=== PATIENT | female | born 1955 | race Caucasian/White ===

== ENCOUNTER 2016-05-10 10:20 | Inpatient (IN) | payer BC ==
[2016-05-10] MEDS ORDERED: ADENOSINE 3 MG/ML SOL IV ONE (10:38)
[2016-05-10] MEDS ORDERED: DILTIAZEM 5 MG/ML SOL IV ONE ×3 (10:38→13:35)
[2016-05-10 10:48] LABS: HEMATOCRIT 42 % (35-47); MEAN CORPUSCULAR HGB CONC 32.8 gm/dl (32.0-36.0); MEAN CORPUSCULAR VOLUME 82 fL (81-99)
[2016-05-10] MEDS ORDERED: SODIUM CHLORIDE 0.9% 1000ML 1,000 ML IV ONE (10:53)
[2016-05-10 11:02] LABS: ALBUMIN 3.5 gm/dl (3.4-5.0); CALCIUM 10.2 mg/dl (8.5-10.1); POTASSIUM 5.6 mMol/L (3.5-5.1)
[2016-05-10 11:03] LABS: BASOPHILS % (MANUAL) 0 % (0-3); EOSINOPHILS % (MANUAL) 0 % (0-9); LYMPHOCYTES % (MANUAL) 2 % (10-50); NORMAL RBCS NORMAL RBCS
[2016-05-10 11:11] LABS: APPEARANCE,URINE Clear; BILIRUBIN,URINE NEGATIVE (NEGATIVE); COLOR,URINE Yellow; GLUCOSE, URINE (UA) 3+ (NEGATIVE); KETONES,URINE 1+ (NEGATIVE); LEUKOCYTE ESTERASE ,URINE NEGATIVE (NEGATIVE); NITRATE,URINE NEGATIVE (NEGATIVE); OCCULT BLOOD,URINE TRACE LYSED (NEG-TRACE); UROBILINOGEN,URINE 0.2 (0.2-1.0 EU)
[2016-05-10] MEDS ORDERED: INSULIN HUMAN REGULAR 100 U/ML SOL ONE ×2 (11:24→12:03)
[2016-05-10] MEDS ORDERED: INSULIN HUMAN REGULAR 500 U in SODIUM CHLORIDE 0.9% 500 ML 500 ML IV SCH (11:30)
[2016-05-10 11:32] LABS: ABG PH 7.38 (7.35-7.45)
[2016-05-10 11:40] LABS: RBC,URINE 0-1 (0-3AV/HPF)
[2016-05-10] MEDS ORDERED: INSULIN HUMAN REGULAR 100 U/ML SOL IV ONE (11:54)
[2016-05-10] MEDS ORDERED: SODIUM CHLORIDE 0.9% 1000ML 1,000 ML IV SCH (13:30)
[2016-05-10 13:59] LABS: CALCIUM 8.4 mg/dl (8.5-10.1); POTASSIUM 3.6 mMol/L (3.5-5.1)
[2016-05-10] MEDS ORDERED: PATIENT EDUCATION 1 MISC PRN (14:10)
[2016-05-10] MEDS ORDERED: SODIUM CHLORIDE 0.45% 1000 ML 1,000 ML with POTASSIUM CHLORIDE 2 MEQ/ML 20 MEQ IV ONE (14:16)
[2016-05-10 15:34] LABS: POTASSIUM 4.2 mMol/L (3.5-5.1)
[2016-05-10] MEDS: LEVETIRACETAM 250 MG TAB PO SCH (16:02)
[2016-05-10] MEDS: PANTOPRAZOLE SODIUM 40 MG/10 ML PDS IV SCH (16:02)
[2016-05-10] MEDS ORDERED: TRAMADOL HYDROCHLORIDE 50 MG TAB PO PRN ×2 (16:16→19:08)
[2016-05-10 16:39] LABS: CALCIUM 9.1 mg/dl (8.5-10.1); POTASSIUM 4.2 mMol/L (3.5-5.1)
[2016-05-10] MEDS ORDERED: DEXTROSE/SALINE 0.45/KCL 20MEQ 1,000 ML IV ONE (17:24)
[2016-05-10] MEDS ORDERED: DEXTROSE/SALINE 0.45/KCL 20MEQ 1,000 ML/1,000 ML SOL IV SCH (17:45)
[2016-05-10] MEDS ORDERED: DEXTROSE/SALINE 0.45/KCL 20MEQ 1,000 ML/1,000 ML SOL IV ONE (17:45)
[2016-05-10] MEDS ORDERED: KETOROLAC TROMETHAMINE 30 MG/ML SOL IV ONE (17:50)
[2016-05-10] MEDS ORDERED: DEXAMETHASONE PO SCH (18:00)
[2016-05-10 18:27] LABS: CALCIUM 9.1 mg/dl (8.5-10.1); MAGNESIUM 1.7 mg/dl (1.8-2.4); PHOSPHORUS 1.4 mg/dl (2.6-4.7)
[2016-05-10] MEDS ORDERED: ONDANSETRON HCL 4 MG/2 ML SOL IV PRN (19:09)
[2016-05-10] MEDS ORDERED: FENTANYL CITRATE 50 MCG/ML SOL IV ONE (19:09)
[2016-05-10] MEDS ORDERED: FENTANYL 12 MCG PATCH TDM TD SCH (19:15)
[2016-05-10] MEDS ORDERED: FENTANYL CITRATE 50 MCG/ML SOL ONE ×2 (19:53→23:22)
[2016-05-10 20:50] LABS: CALCIUM 8.6 mg/dl (8.5-10.1); GLOM FILT RATE 109 mL/min (>60); POTASSIUM 4.1 mMol/L (3.5-5.1); SODIUM 128 mMol/L (136-145)
[2016-05-10] MEDS ORDERED: MAGNESIUM SULFATE 1 GM/2 ML 2 GM in SODIUM CHLORIDE 0.9% 100 ML 100 ML IV ONE ×2 (21:18→22:00)
[2016-05-10] MEDS ORDERED: SODIUM CHLORIDE IV SCH ×2 (21:45→22:30)
[2016-05-10] MEDS ORDERED: DEXTROSE IV SCH ×3 (21:45→22:30)
[2016-05-10] MEDS ORDERED: POTASSIUM CHLORIDE IV SCH ×2 (21:45→22:30)
[2016-05-10 22:30] LABS: CALCIUM 9.1 mg/dl (8.5-10.1); POTASSIUM 4.7 mMol/L (3.5-5.1)
[2016-05-10] MEDS ORDERED: POTASSIUM PHOS IV SCH (22:30)
[2016-05-10] MEDS ORDERED: DEXTROSE/SALINE 0.9% 1,000 ML IV ONE (22:30)
[2016-05-10] MEDS: DEXTROSE/SALINE 0.9% 1,000 ML with POTASSIUM CHLORIDE 2 MEQ/ML 20 MEQ IV SCH (23:07)
[2016-05-10] MEDS: FENTANYL CITRATE 50 MCG/ML SOL IV PRN (23:24)
[2016-05-11 00:36] LABS: CALCIUM 8.8 mg/dl (8.5-10.1); POTASSIUM 4.5 mMol/L (3.5-5.1)
[2016-05-11] MEDS ORDERED: POTASSIUM CHLORIDE 2 MEQ/ML SOL IV ONE (01:25)
[2016-05-11] MEDS: DEXTROSE IV SCH ×2 (01:44→10:18)
[2016-05-11] MEDS: POTASSIUM PHOS IV SCH ×2 (01:44→10:18)
[2016-05-11] MEDS: DEXTROSE/SALINE 0.9% 1,000 ML with POTASSIUM CHLORIDE 2 MEQ/ML 20 MEQ IV SCH (01:45)
[2016-05-11 02:35] LABS: CALCIUM 8.4 mg/dl (8.5-10.1); POTASSIUM 4.9 mMol/L (3.5-5.1)
[2016-05-11] MEDS ORDERED: FENTANYL CITRATE 50 MCG/ML SOL ONE (02:44)
[2016-05-11] MEDS: FENTANYL CITRATE 50 MCG/ML SOL IV PRN (02:56)
[2016-05-11 04:47] LABS: CALCIUM 8.3 mg/dl (8.5-10.1); MAGNESIUM 1.9 mg/dl (1.8-2.4); POTASSIUM 4.5 mMol/L (3.5-5.1)
[2016-05-11] MEDS ORDERED: POTASSIUM CHLORIDE IV SCH (07:37)
[2016-05-11] MEDS ORDERED: DEXTROSE IV SCH (07:37)
[2016-05-11] MEDS ORDERED: SODIUM CHLORIDE IV SCH (07:37)
[2016-05-11 07:48] LABS: ALBUMIN 2.8 gm/dl (3.4-5.0); CALCIUM 8.8 mg/dl (8.5-10.1); PHOSPHORUS 2.3 mg/dl (2.6-4.7); POTASSIUM 4.6 mMol/L (3.5-5.1)
[2016-05-11] MEDS ORDERED: SODIUM CHLORIDE 0.9% 1000ML 1,000 ML IV SCH (08:00)
[2016-05-11] MEDS ORDERED: FENTANYL 25 MCG PATCH TDM TD SCH (08:15)
[2016-05-11] MEDS: PANTOPRAZOLE SODIUM 40 MG/10 ML PDS IV SCH (08:39)
[2016-05-11] MEDS: INSULIN GLARGINE, RECOMBINAN 100 U/ML SOL SC SCH (08:53)
[2016-05-11] MEDS ORDERED: INSULIN GLARGINE, RECOMBINAN 100 U/ML SOL SC SCH (09:00)
[2016-05-11] MEDS: SODIUM CHLORIDE 0.9% FLUSH 10 ML SOL IV SCH ×2 (09:15→15:25)
[2016-05-11] MEDS ORDERED: HEPARIN 500 Unit PRE-FILL 100 U/ML SOL IV PRN (09:32)
[2016-05-11] MEDS: DEXAMETHASONE 2 MG PO SCH (10:01)
[2016-05-11] MEDS: HUMALOG PEN 100 U/ML SC SCH ×3 (11:24→20:57)
[2016-05-11 15:10] LABS: HEMATOCRIT 34 % (35-47); MEAN CORPUSCULAR HGB CONC 33.7 gm/dl (32.0-36.0)
[2016-05-11 15:12] LABS: MEAN CORPUSCULAR VOLUME 80 fL (81-99)
[2016-05-11 15:21] LABS: LYMPHOCYTES % (MANUAL) 0 % (10-50)
[2016-05-11 15:22] LABS: BASOPHILS % (MANUAL) 0 % (0-3); CALCIUM 8.5 mg/dl (8.5-10.1); EOSINOPHILS % (MANUAL) 0 % (0-9); POTASSIUM 3.9 mMol/L (3.5-5.1); TARGET CELLS PRESENT; TOXIC GRANULATION PRESENT
[2016-05-11] MEDS: LEVETIRACETAM 250 MG TAB PO SCH (15:24)
[2016-05-11] MEDS ORDERED: SODIUM CHLORIDE 0.9% 500 ML 500 ML IV ONE (15:54)
[2016-05-11] MEDS ORDERED: BISACODYL 10 MG SUP PR PRN (15:57)
[2016-05-11] MEDS: SODIUM CHLORIDE 0.9% 1000ML 1,000 ML IV SCH (19:35)
[2016-05-11 20:00] LABS: APPEARANCE,URINE Clear; BILIRUBIN,URINE NEGATIVE (NEGATIVE); COLOR,URINE Yellow; GLUCOSE, URINE (UA) 2+ (NEGATIVE); KETONES,URINE NEGATIVE (NEGATIVE); LEUKOCYTE ESTERASE ,URINE NEGATIVE (NEGATIVE); NITRATE,URINE NEGATIVE (NEGATIVE); OCCULT BLOOD,URINE NEGATIVE (NEG-TRACE); UROBILINOGEN,URINE 0.2 (0.2-1.0 EU)
[2016-05-11 20:37] LABS: RBC,URINE NEG (0-3AV/HPF); WBC,URINE 0-2 (0-5AV/HPF)
[2016-05-12] MEDS: SODIUM CHLORIDE 0.9% FLUSH 10 ML SOL IV SCH ×3 (00:50→16:35)
[2016-05-12] MEDS: SODIUM CHLORIDE 0.9% 1000ML 1,000 ML IV SCH ×3 (02:48→17:59)
[2016-05-12 07:18] LABS: HEMATOCRIT 31 % (35-47); MEAN CORPUSCULAR HGB CONC 33.6 gm/dl (32.0-36.0); MEAN CORPUSCULAR VOLUME 82 fL (81-99)
[2016-05-12 07:36] LABS: CALCIUM 8.2 mg/dl (8.5-10.1); POTASSIUM 3.2 mMol/L (3.5-5.1)
[2016-05-12 08:01] LABS: BASOPHILS % (MANUAL) 0 % (0-3); EOSINOPHILS % (MANUAL) 0 % (0-9); LYMPHOCYTES % (MANUAL) 1 % (10-50); TARGET CELLS PRESENT
[2016-05-12] MEDS: DEXAMETHASONE 2 MG PO SCH (09:27)
[2016-05-12] MEDS: INSULIN GLARGINE, RECOMBINAN 100 U/ML SOL SC SCH (09:31)
[2016-05-12] MEDS: HUMALOG PEN 100 U/ML SC SCH ×4 (09:33→20:31)
[2016-05-12] MEDS: PANTOPRAZOLE SODIUM 40 MG/10 ML PDS IV SCH (10:07)
[2016-05-12] MEDS: LEVETIRACETAM 250 MG TAB PO SCH (16:35)
[2016-05-12] MEDS: SODIUM CHLORIDE/KCL 20MEQ 1,000 ML IV SCH (21:28)
[2016-05-13] MEDS: SODIUM CHLORIDE 0.9% FLUSH 10 ML SOL IV SCH ×3 (02:04→09:22)
[2016-05-13] MEDS: SODIUM CHLORIDE/KCL 20MEQ 1,000 ML IV SCH (04:12)
[2016-05-13] MEDS: DEXAMETHASONE 2 MG PO SCH (09:22)
[2016-05-13] MEDS: INSULIN GLARGINE, RECOMBINAN 100 U/ML SOL SC SCH (09:23)
[2016-05-13] MEDS: HUMALOG PEN 100 U/ML SC SCH ×2 (09:24→13:21)
[2016-05-13] MEDS ORDERED: FENTANYL CITRATE 50 MCG/ML SOL ONE (09:49)
[2016-05-13] MEDS: FENTANYL CITRATE 50 MCG/ML SOL IV PRN (09:51)
[2016-05-13 13:12] VITALS: BP 139/91; PULSE 104; RESP 17; TEMP 97.6; O2SAT 96
== END 2016-05-13 10:50 | disposition hospice, home (50) | DRG 281 ==
LOC: ED 10:26 → ACUTE CARE 12:55 → UNDOADMIN 13:27 → ACUTE CARE 13:27
PROVIDERS: ADMIT Family Medicine; ATTEND Family Medicine
DX: C25.9 Malignant neoplasm of pancreas, unspecified (principal); E08.10 Diabetes mellitus due to underlying condition with ketoacidosis without coma; C78.00 Secondary malignant neoplasm of unspecified lung; C79.31 Secondary malignant neoplasm of brain; I47.1 Supraventricular tachycardia; E83.42 Hypomagnesemia; E83.39 Other disorders of phosphorus metabolism
CPT/HCPCS: 36415; 36600; 71010; 74177; 80048; 80053; 81001; 82009; 82150; 82803; 82962; 83735; 83880; 84100; 84484; 85007; 85027; 85610; 85730; 93005; 93012; 96365; 96366; 96374; 96375; 99284; 99285; J0153; J1644; J1815; J1817; J1885; J2405; J3010; J3480; Q9967

== ENCOUNTER 2016-05-18 11:22 | Inpatient (IN) | payer BC ==
[2016-05-12 13:10] VITALS: O2SAT 96
[~2016-05-18 11:22] MED LIST: HEPARIN 500 Unit PRE-FILL 100 U/ML SOL IV PRN; SODIUM CHLORIDE 0.9% 1000ML 1,000 ML IV ONE; SODIUM CHLORIDE 0.9% FLUSH 10 ML SOL IV PRN; SODIUM CHLORIDE 0.9% FLUSH 10 ML SOL IV SCH
[2016-05-18 11:54] LABS: CALCIUM 8.7 mg/dl (8.5-10.1); POTASSIUM 4.2 mMol/L (3.5-5.1)
[2016-05-18 11:55] VITALS: RESP 20
[2016-05-18 13:22] VITALS: BP 108/68; PULSE 82; TEMP 98.4
== END 2016-05-18 13:20 | disposition home or self-care (01) | DRG 422 ==
LOC: ACUTE CARE 11:22
PROVIDERS: ADMIT Family Medicine; ATTEND Family Medicine
DX: E86.0 Dehydration (principal); C25.9 Malignant neoplasm of pancreas, unspecified
CPT/HCPCS: 36591; 80048; J1644